=== PATIENT | male | born 1995 ===

== ENCOUNTER 2019-07-05 10:58 | Observation (INO) | payer SELFPAY ==
[2019-07-05] MEDS ORDERED: ONDANSETRON 4 MG/2 ML INJ IV ONE (12:00)
[2019-07-05] MEDS ORDERED: SODIUM CHLORIDE 0.9% 1000 ML 1,000 ML IV ONE (12:00)
[2019-07-05] MEDS ORDERED: MORPHINE 2 MG/1 ML INJ IV ONE (12:00)
[2019-07-05 12:06] LABS: Hematocrit 41.2 % (35.5-45.6); Hemoglobin 14.5 gm/dl (11.8-15.2); Mean Corpuscular HGB Conc 35 % (32-34); Mean Corpuscular Volume 90 fl (84-94); Platelet Count 166 K/mm3 (140-440); Red Blood Count 4.57 M/mm3 (3.65-5.03); Red Cell Distribution Width 13.3 % (13.2-15.2)
[2019-07-05 12:23] LABS: BUN/Creatinine Ratio 14; Blood Urea Nitrogen 10 mg/dL (9-20); Calcium 8.9 mg/dL (8.4-10.2); Hemolysis Index 11
[2019-07-05 12:28] LABS: Albumin 4.2 g/dL (3.9-5); Bilirubin,Direct 0.2 mg/dL (0-0.2)
--- NOTE | 2019-07-05 12:38 | Emergency Department Report ---
ED Abdominal Pain HPI - General Chief Complaint: Abdominal Pain Stated Complaint: RIGHT SIDE PAIN Time Seen by Provider: 07/05/19 11:37 Source: patient Mode of arrival: Ambulatory Limitations: No Limitations - History of Present Illness Initial Comments: 24-year-old male with no past medical history presents to ED with right lower quadrant pain since yesterday. Patient denies any fever, nausea, vomiting. He denies any associated back pain or hematuria. Patient states pain is located in the right lower quadrant and radiates down into the right testicle. He denies any testicular or scrotal swelling. Patient denies any urinary frequency. Reports slight dysuria. Denies any changes in appetite. MD Complaint: abdominal pain -: days(s) (1) Location: RLQ Radiation: other (R testicle) Migration to: no migration Severity: moderate Quality: sharp Consistency: constant Improves With: nothing Worsens With: nothing Associated Symptoms: dysuria. denies: nausea, vomiting, diarrhea, fever, hematuria - Related Data Allergies Allergy/AdvReac Type Severity Reaction Status Date / Time No Known Allergies Allergy Unverified 07/05/19 11:00 ED Review of Systems ROS: Stated complaint: RIGHT SIDE PAIN Other details as noted in HPI Comment: All other systems reviewed and negative Constitutional: denies: chills, fever Gastrointestinal: abdominal pain. denies: nausea, vomiting, diarrhea Genitourinary: dysuria, testicular pain. denies: frequency, hematuria Musculoskeletal: denies: back pain ED Past Medical Hx - Past Medical History Previous Medical History?: No - Surgical History Past Surgical History?: No - Social History Smoking Status: Never Smoker Substance Use Type: None ED Physical Exam - General Limitations: No Limitations General appearance: alert, in no apparent distress - Head Head exam: Present: atraumatic - Eye Eye exam: Present: normal appearance, EOMI - ENT ENT exam: Present: mucous membranes moist - Neck Neck exam: Present: normal inspection - Respiratory Respiratory exam: Present: normal lung sounds bilaterally. Absent: respiratory distress - Cardiovascular Cardiovascular Exam: Present: normal rhythm, tachycardia - GI/Abdominal GI/Abdominal exam: Present: soft, tenderness (RLQ tenderness present). Absent: distended - Extremities Exam Extremities exam: Present: normal inspection - Back Exam Back exam: Absent: CVA tenderness (R), CVA tenderness (L) - Neurological Exam Neurological exam: Present: alert, oriented X3 - Psychiatric Psychiatric exam: Present: normal affect, normal mood - Skin Skin exam: Present: warm, dry, intact, normal color ED Course Vital Signs 07/05/19 07/05/19 11:02 11:55 Temperature 97.7 F 99.6 F Pulse Rate 115 H 100 H Respiratory 18 17 Rate Blood Pressure 116/60 Blood Pressure 112/63 [Left] O2 Sat by Pulse 98 99 Oximetry - Consultations Consultation #1: 07/05/19 13:33 Spoke w/ Dr Ferguson. Informed of CT findings. States give zosyn. Will try to add on case for today. Admit to hospitalist. ED Medical Decision Making - Lab Data Result diagrams: 07/05/19 11:41 07/05/19 11:41 - Radiology Data Radiology results: report reviewed, image reviewed - Medical Decision Making 24 yo M w/ RLQ abdominal pain since yesterday. Pt referred to the ED due to concern for appendicitis after initially going to a clinic. Pt denies any fever, nausea, or vomiting. No hematuria observed by the patient. On exam, pt has RLQ tenderness, no peritoneal signs present. Pt w/ low grade temp, slightly tachycardic. WBCs normal. CT A/P shows acute appendicitis, no abscess or perforation. Spoke w/ Dr Ferguson, will take pt to OR. Zosyn given. Pt will be admitted to the hospitalist for further management. - Differential Diagnosis appendicitis, kidney stone, UTI Critical care attestation.: If time is entered above; I have spent that time in minutes in the direct care of this critically ill patient, excluding procedure time. ED Disposition Clinical Impression: Acute appendicitis Disposition: OP ADMIT IP TO THIS HOSP Is pt being admited?: Yes Condition: Stable Referrals: PRIMARY CARE, [Primary Care Provider] - 3-5 Days Time of Disposition: 13:34
[2019-07-05 13:05] LABS: Band Neutrophils # (Manual) 0.3 K/mm3; Basophils % (Manual) 0 % (0.0-1.8); Eosinophils % (Manual) 0 % (0.0-4.3); Total Cells Counted 100
[2019-07-05 13:06] LABS: Platelet Estimate Consistent w Auto; RBC Morphology Normal
[2019-07-05 13:08] LABS: Bacteria,Urine 1+ /HPF (Negative); Bilirubin,Urine NEG (Negative); Blood,Urine SM (Negative); Color,Urine Amber (Yellow); Mucus,Urine FEW /HPF
--- NOTE | 2019-07-05 13:15 | Cat Scan Report ---
CT abdomen pelvis w con INDICATION / CLINICAL INFORMATION: MAIN: RLQ pain x1day [id number] 100ml. TECHNIQUE: All CT scans at this location are performed using CT dose reduction for ALARA by means of automated e xposure control. COMPARISON: None available. FINDINGS: Lung bases are clear. ABDOMEN: The gallbladder, liver, spleen, pancreas and kidneys are normal. Calcification of the right adrenal gland suggests remote adrenal hemorrhage. No retroperitoneal adenopathy. Pelvis: The appendix is thick-walled, dilated and has some mild periappendiceal edema consistent with acute a ppendicitis. No acute colon abnormality. There is a small dependent fluid collections seen in the pelvis but no evidence of abscess. No bony abnormality. IMPRESSION: 1. Acute appendicitis. Signer Name: Larry Mishra MD Signed: 07/05/2019 1:11 PM Workstation Name: [id number]
[2019-07-05] MEDS ORDERED: PIPERACIL/TAZOBACTA 4.5/NS 100 4.5 GM/100 ML VIAL IV ONE (13:33)
--- NOTE | 2019-07-05 15:03 | Consultation ---
History of Present Illness Consult date: 07/05/19 Reason for consult: abdominal pain - History of present illness History of present illness: 24 year old male presented to ED with one day history of RLQ abdominal pain that radiated to his right groin and testicle. He denies having this pain before, as well as any n/v, or diarrhea. He had a CT scan that showed finding co nsistent with acute appendicitis. Past History Past Medical History: No medical history Past Surgical History: No surgical history Social history: denies: smoking Medications and Allergies Allergies Allergy/AdvReac Type Severity Reaction Status Date / Time No Known Allergies Allergy Unverified 07/05/19 11:00 Review of Systems - Constitutional poor appetite, no weight loss, no fever, no chills - Cardiovascular no chest pain - Respiratory no cough - Gastrointestinal abdominal pain, no nausea, no vomiting - Genitourinary testicular pain, no dysuria Exam Vital Signs Temp Pulse Resp BP Pulse Ox 97.7 F 115 H 18 116/60 98 07/05/19 11:02 07/05/19 11:02 07/05/19 11:02 07/05/19 11:02 07/05/19 11:02 - General physical appearance Positive: well developed, well nourished, no pain - Respiratory Positive: normal expansion, normal respiratory effort - Extremities Extremities: no ischemia - Abdomen Abdomen: Present: soft, other (tender to palpation in the RLQ, no rebound or guarding) Results - Labs 07/05/19 11:41 07/05/19 11:41 Abnormal lab results 07/05/19 07/05/19 07/05/19 Range/Units 11:41 11:41 11:41 MCHC 35 H (32-34) % Seg Neuts % (Manual) 92.0 H (40.0-70.0) % Lymphocytes % (Manual) 2.0 L (13.4-35.0) % Seg Neutrophils # Man 9.8 H (1.8-7.7) K/mm3 Lymphocytes # (Manual) 0.2 L (1.2-5.4) K/mm3 Sodium 132 L (137-145) mmol/L Chloride 95.6 L (98-107) mmol/L Creatinine 0.7 L (0.8-1.5) mg/dL Glucose 112 H (75-100) mg/dL AST 41 H (5-40) units/L Ur Specific [place] (1.003-1.030) 07/05/19 Range/Units 12:33 MCHC (32-34) % Seg Neuts % (Manual) (40.0-70.0) % Lymphocytes % (Manual) (13.4-35.0) % Seg Neutrophils # Man (1.8-7.7) K/mm3 Lymphocytes # (Manual) (1.2-5.4) K/mm3 Sodium (137-145) mmol/L Chloride (98-107) mmol/L Creatinine (0.8-1.5) mg/dL Glucose (75-100) mg/dL AST (5-40) units/L Ur Specific [place] 1.033 H (1.003-1.030) Diabetes panel 07/05/19 07/05/19 Range/Units 11:41 11:41 Sodium 132 L (137-145) mmol/L Potassium 3.9 (3.6-5.0) mmol/L Chloride 95.6 L (98-107) mmol/L Carbon Dioxide 24 (22-30) mmol/L BUN 10 (9-20) mg/dL Creatinine 0.7 L (0.8-1.5) mg/dL Glucose 112 H (75-100) mg/dL Calcium 8.9 (8.4-10.2) mg/dL AST 41 H (5-40) units/L ALT 30 (7-56) units/L Alkaline Phosphatase 94 (35-129) units/L Total Protein 7.7 (6.3-8.2) g/dL Albumin 4.2 (3.9-5) g/dL Calcium panel 07/05/19 07/05/19 Range/Units 11:41 11:41 Calcium 8.9 (8.4-10.2) mg/dL Albumin 4.2 (3.9-5) g/dL Pituitary panel 07/05/19 Range/Units 11:41 Sodium 132 L (137-145) mmol/L Potassium 3.9 (3.6-5.0) mmol/L Chloride 95.6 L (98-107) mmol/L Carbon Dioxide 24 (22-30) mmol/L BUN 10 (9-20) mg/dL Creatinine 0.7 L (0.8-1.5) mg/dL Glucose 112 H (75-100) mg/dL Calcium 8.9 (8.4-10.2) mg/dL Adrenal panel 07/05/19 07/05/19 Range/Units 11:41 11:41 Sodium 132 L (137-145) mmol/L Potassium 3.9 (3.6-5.0) mmol/L Chloride 95.6 L (98-107) mmol/L Carbon Dioxide 24 (22-30) mmol/L BUN 10 (9-20) mg/dL Creatinine 0.7 L (0.8-1.5) mg/dL Glucose 112 H (75-100) mg/dL Calcium 8.9 (8.4-10.2) mg/dL Total Bilirubin 0.90 (0.1-1.2) mg/dL AST 41 H (5-40) units/L ALT 30 (7-56) units/L Alkaline Phosphatase 94 (35-129) units/L Total Protein 7.7 (6.3-8.2) g/dL Albumin 4.2 (3.9-5) g/dL - Imaging CT scan - abdomen: pending, image reviewed CT scan - pelvis: pending, image reviewed Assessment and Plan 24 year old male with acute appendicitis. Afebrile and stable. Pt was consented via television receiver analyzer for laparoscopic appendectomy. He expressed understanding of the risks and benefits. Antibiotics and prepare for surgery. If surgery and recovery without complicat ions can probably be discharged tomorrow. Evaluation and treatment of this patient was during the time of the national and state emergency arising from the COVID-19 pandemic. The hospital is functioning under the conditions of the COVID-19 health crisis. Treatments and procedures performed meet the current and available best practice and guidance for patients during the COVID-19 pandemic.
[2019-07-05] MEDS ORDERED: HYDROmorphone 1 MG/1 ML INJ IV PRN ×2 (15:07→22:31)
[2019-07-05] MEDS ORDERED: ONDANSETRON 4 MG/2 ML INJ IV PRN ×3 (15:07→22:31)
--- NOTE | 2019-07-05 15:07 | Anesthesia Day of Surgery ---
Anesthesia Day of Surgery - Day of Surgery Patient Examined: Yes Patient H&P Reviewed: Yes Patient is NPO: Yes
--- NOTE | 2019-07-05 15:10 | Anesthesia Consultation ---
Anesthesia Consult and Med Hx Date of service: 07/05/19 - Airway Anesthetic Teeth Evaluation: Good ROM Head & Neck: Adequate Mental/Hyoid Distance: Adequate Mallampati Class: Class III Intubation Access Assessment: Probably Good - Pre-Operative Health Status ASA Pre-Surgery Classification: ASA1, Emergency Proposed Anesthetic Plan: General - Pulmonary Hx Smoking: No - Additional Comments Anesthesia Medical History Comments: Martiniquais speaking only-ER nurse translated. All questions answered.
[2019-07-05] MEDS ORDERED: BUPIVACAINE-EPINEPHRINE/PF 0.5%-1:200,000 (30 ML) VIAL INFILTRATI ONE (15:15)
[2019-07-05] MEDS ORDERED: LIDOCAINE (1%) 10 MG/1 ML VIAL 20 ML MDV ONE (15:15)
[2019-07-05] MEDS ORDERED: PHENYLEPHRINE/NS 1,000 MCG/10 ML SYRINGE (OR USE) IV ONE (15:43)
[2019-07-05] MEDS ORDERED: propofoL 200 MG/20 ML VIAL IV ONE (15:43)
[2019-07-05] MEDS ORDERED: SUCCINYLCHOLINE CHLORIDE 200 MG/10 ML INJ MDV ONE (15:43)
[2019-07-05] MEDS ORDERED: LIDOCAINE MPF (2%) 20 MG/1 ML VIAL 5 ML ONE (15:43)
[2019-07-05] MEDS ORDERED: ONDANSETRON 4 MG/2 ML INJ ONE (15:43)
[2019-07-05] MEDS ORDERED: ROCURONIUM 50 MG/5 ML INJ IV ONE (15:43)
[2019-07-05] MEDS ORDERED: GLYCOPYRROLATE 0.4 MG/2 ML INJ ONE (15:43)
[2019-07-05] MEDS ORDERED: NEOSTIGMINE 10MG/10 ML INJ MDV ONE (15:43)
[2019-07-05] MEDS ORDERED: fentaNYL 100 MCG/2 ML INJ ONE ×2 (15:43)
[2019-07-05] MEDS ORDERED: BUPIVACAINE/PF (0.5%) 5 MG/1 ML 30 ML VIAL INFILTRATI ONE (16:34)
[2019-07-05] MEDS ORDERED: LIDOCAINE (1%) 10 MG/1 ML VIAL 20 ML MDV INFILTRATI ONE (16:39)
--- NOTE | 2019-07-05 17:25 | Operative Report ---
Operative Report Operative Report: Date: July 05, 2019 Surgeon: Kala Ferguson MD Procedure: Laparoscopic appendectomy Preoperative diagnosis: Acute nonperforated appendicitis Postop diagnosis: Same as preop Anesthesia: General with endotracheal tube intubation Specimen: Appendix Complications: None immediate Indication: 24-year-old male presented to emergency room with 1 day history of right lower quadrant abdominal pain. CT scan showed acute appendicitis. Patient was consented with an restaurant service manager because he speaks only Ukrainian, for laparoscopic appendectomy. He expressed understanding of the risk and benefits. Details of procedure: Patient was brought into the OR suite, laid in supine position. Bilateral lower extremity SCDs were placed. General anesthesia was induced via successful endotracheal tube intubation. A Almodovar catheter was inserted under sterile conditions. Patient's abdomen was prepped and draped in sterile fashion with his left arm tucked at his side. No immediate preop antibiotics were given prior to incision because he was given Zosyn in the emergency room and it was not time to re-dose at the time of the procedure. A timeout was performed and a Veress needle was used to insufflate the abdomen to a pressure of 15 mmHg via an umbilical stab wound. Of note, a special smoke evacuator insufflator was used due to the fact that current guidelines suggest for laparoscopic cases a dedicated smoke evacuator is indicated due to the current state of emergency and COVID-19 pandemic. After this using Optiview technique a 5 mm trocar was placed just superior to the umbilicus. There was no gross injury to any intra-abdominal structures appreciated. 2 working trochars were placed under direct visualization. A 5 mm trocar in the suprapubic area, and a 12 mm trocar left abdomen. The patient was placed in Trendelenburg position and tilted towards his left side. The appendix was easily visualized with the distal two thirds showing obvious inflammation and dilation. The proximal third of the appendix appeared to be within fairly normal limits. It was retracted towards the intra-abdominal wall, and a LigaSure device was used to transect the mesoappendix. Using a white load on an laparoscopic stapler, the appendix was transected at the base along the cecum. It was then placed in Endo Catch bag. The staple line was inspected there were no signs of bleeding, low antonio or spillage. No abscess, or free fluid was appreciated. At this time the abdomen was then desufflated using the dedicated smoke evacuator tubing. Once the pressure was 0, and excess air was manually expressed, the trochars were removed. The appendix was retrieved via the 12 mm trocar site. Using open technique, the fascia at this site was closed with a 2-0 Vicryl. All skin incisions were closed with 4 Monocryl followed by Dermabond. Patient was awoken, extubated, Almodovar was removed prior to being transferred to the recovery room in stable condition. All counts were correct. Findings: Acute nonpurulent, nonperforated appendicitis
--- NOTE | 2019-07-05 17:25 | Post Anesthesia Evaluation ---
- Post Anesthesia Evaluation Patient Participated: Yes Airway Patent: Yes Stable Respiratory Function: Yes Nausea/Vomiting: No Temp > 96.8F: Yes Pain Manageable: Yes Adequeate Hydration: Yes Anesthesia Complications: No Block Receding Appropriately: Not Applicable Patient on Ventilator: No
[2019-07-05] MEDS ORDERED: LACTATED RINGERS 1,000 ML IV SCH (18:00)
[2019-07-05] MEDS ORDERED: oxyCODONE /ACETAMINOPHEN 5-325MG TAB PO PRN (18:59)
[2019-07-05] MEDS: PIPERACILLIN/TAZOBACTAM 3.375 3.375 GM/50 ML BAG IV SCH ×2 (22:27→22:32)
--- NOTE | 2019-07-05 22:30 | History and Physical Report ---
History of Present Illness Date of examination: 07/05/19 Date of admission: 07/05/19 13:44 Chief complaint: RLQ pain 1 day History of present illness: 24-year-old male with no past medical history presents to ED with right lower quadrant pain since yesterday. Patient denies any fever, nausea, vomiting. He denies any associated back pain or hematuria. Patient states pain is located in the right lower quadrant and radiates down into the right testicle. He denies any testicular or scrotal swelling. Patient denies any urinary frequency. Reports slight dysuria. Denies any changes in appetite. Past Medical History Previous Medical History?: No Surgical History Past Surgical History?: No Social History Smoking Status: Never Smoker Substance Use Type: None Family Hx Htn Review of Systems ROS: Stated complaint: RIGHT SIDE PAIN Other details as noted in HPI Comment: All other systems reviewed and negative Constitutional: denies: chills, fever Gastrointestinal: abdominal pain. denies: nausea, vomiting, diarrhea Genitourinary: dysuria, testicular pain. denies: frequency, hematuria Musculoskeletal: denies: back pain Past History Past Medical History: No medical history Past Surgical History: No surgical history Social history: denies: smoking Medications and Allergies Allergies Allergy/AdvReac Type Severity Reaction Status Date / Time No Known Allergies Allergy Unverified 07/05/19 11:00 Home Medications Medication Instructions Recorded Confirmed Last Taken Type oxyCODONE /ACETAMINOPHEN [Percocet 1 tab PO Q4HR PRN #20 tab 07/06/19 Unknown Rx 5/325] Active Meds: Active Medications Lactated Ringer's (Lactated Ringers) 1,000 mls @ 125 mls/hr IV DIRECT JHON Piperacillin Sod/Tazobactam Sod (Zosyn/Ns 3.375gm/50ml) 3.375 gm in 50 mls @ 100 mls/hr IV Q8HR JHON; Protocol Stop: 07/06/19 06:29 Last Admin: 07/05/19 22:27 Dose: 100 mls/hr Documented by: Ketorolac Tromethamine (Toradol) 30 mg IV Q6HR JHON Stop: 07/10/19 22:59 Ondansetron HCl (Zofran) 4 mg IV Q4H PRN PRN Reason: Nausea And Vomiting Oxycodone/Acetaminophen (Percocet 5/325) 2 tab PO Q4H PRN PRN Reason: Pain, Moderate (4-6) Exam - Constitutional Vitals: Temp Pulse Resp BP Pulse Ox 99.5 F 70 16 115/62 100 07/05/19 20:27 07/05/19 20:27 07/05/19 20:27 07/05/19 20:27 07/05/19 20:27 General appearance: Present: no acute distress, well-nourished - EENT Eyes: Present: PERRL ENT: hearing intact, clear oral mucosa - Neck Neck: Present: supple, normal ROM - Respiratory Respiratory effort: normal Respiratory: bilateral: CTA - Cardiovascular Heart rate: 78 Rhythm: regular Heart Sounds: Present: S1 & S2. Absent: rub, click - Extremities Extremities: pulses symmetrical, No edema Peripheral Pulses: within normal limits - Abdominal General gastrointestinal: Present: soft, non-tender, non-distended, normal bowel sounds Localized gastrointestinal: tender: RLQ, guarding: RLQ Male genitourinary: Present: normal - Integumentary Integumentary: Present: clear, warm, dry - Musculoskeletal Musculoskeletal: gait normal, strength equal bilaterally - Psychiatric Psychiatric: appropriate mood/affect, intact judgment & insight - Neurologic Neurologic: CNII-XII intact, moves all extremities - Allied Health Allied health notes reviewed: nursing, case management Results - Labs CBC & Chem 7: 07/06/19 03:58 07/06/19 03:58 Labs: Laboratory Last Values WBC 10.7 K/mm3 (4.5-11.0) 07/05/19 11:41 RBC 4.57 M/mm3 (3.65-5.03) 07/05/19 11:41 Hgb 14.5 gm/dl (11.8-15.2) 07/05/19 11:41 Hct 41.2 % (35.5-45.6) 07/05/19 11:41 MCV 90 fl (84-94) 07/05/19 11:41 MCH 32 pg (28-32) 07/05/19 11:41 MCHC 35 % (32-34) H 07/05/19 11:41 RDW 13.3 % (13.2-15.2) 07/05/19 11:41 Plt Count 166 K/mm3 (140-440) 07/05/19 11:41 Add Manual Diff Complete 07/05/19 11:41 Total Counted 100 07/05/19 11:41 Seg Neutrophils % Drain Technician 07/05/19 11:41 Seg Neuts % (Manual) 92.0 % (40.0-70.0) H 07/05/19 11:41 Band Neutrophils % 3.0 % 07/05/19 11:41 Lymphocytes % (Manual) 2.0 % (13.4-35.0) L 07/05/19 11:41 Reactive Lymphs % (Man) 0 % 07/05/19 11:41 Monocytes % (Manual) 3.0 % (0.0-7.3) 07/05/19 11:41 Eosinophils % (Manual) 0 % (0.0-4.3) 07/05/19 11:41 Basophils % (Manual) 0 % (0.0-1.8) 07/05/19 11:41 Metamyelocytes % 0 % 07/05/19 11:41 Myelocytes % 0 % 07/05/19 11:41 Promyelocytes % 0 % 07/05/19 11:41 Blast Cells % 0 % 07/05/19 11:41 Nucleated RBC % Not Reportable 07/05/19 11:41 Seg Neutrophils # Man 9.8 K/mm3 (1.8-7.7) H 07/05/19 11:41 Band Neutrophils # 0.3 K/mm3 07/05/19 11:41 Lymphocytes # (Manual) 0.2 K/mm3 (1.2-5.4) L 07/05/19 11:41 Abs React Lymphs (Man) 0.0 K/mm3 07/05/19 11:41 Monocytes # (Manual) 0.3 K/mm3 (0.0-0.8) 07/05/19 11:41 Eosinophils # (Manual) 0.0 K/mm3 (0.0-0.4) 07/05/19 11:41 Basophils # (Manual) 0.0 K/mm3 (0.0-0.1) 07/05/19 11:41 Metamyelocytes # 0.0 K/mm3 07/05/19 11:41 Myelocytes # 0.0 K/mm3 07/05/19 11:41 Promyelocytes # 0.0 K/mm3 07/05/19 11:41 Blast Cells # 0.0 K/mm3 07/05/19 11:41 WBC Morphology Not Reportable 07/05/19 11:41 Hypersegmented Neuts Not Reportable 07/05/19 11:41 Hyposegmented Neuts Not Reportable 07/05/19 11:41 Hypogranular Neuts Not Reportable 07/05/19 11:41 Smudge Cells Not Reportable 07/05/19 11:41 Toxic Granulation Not Reportable 07/05/19 11:41 Toxic Vacuolation Not Reportable 07/05/19 11:41 Dohle Bodies Not Reportable 07/05/19 11:41 Pelger-Huet Anomaly Not Reportable 07/05/19 11:41 Denys Rods Not Reportable 07/05/19 11:41 Platelet Estimate Consistent w auto 07/05/19 11:41 Clumped Platelets Not Reportable 07/05/19 11:41 Plt Clumps, EDTA Not Reportable 07/05/19 11:41 Large Platelets Not Reportable 07/05/19 11:41 Giant Platelets Not Reportable 07/05/19 11:41 Platelet Satelliting Not Reportable 07/05/19 11:41 Plt Morphology Comment Not Reportable 07/05/19 11:41 RBC Morphology Normal 07/05/19 11:41 Dimorphic RBCs Not Reportable 07/05/19 11:41 Polychromasia Not Reportable 07/05/19 11:41 Hypochromasia Not Reportable 07/05/19 11:41 Poikilocytosis Not Reportable 07/05/19 11:41 Anisocytosis Not Reportable 07/05/19 11:41 Microcytosis Not Reportable 07/05/19 11:41 Macrocytosis Not Reportable 07/05/19 11:41 Spherocytes Not Reportable 07/05/19 11:41 Pappenheimer Bodies Not Reportable 07/05/19 11:41 Sickle Cells Not Reportable 07/05/19 11:41 Target Cells Not Reportable 07/05/19 11:41 Tear Drop Cells Not Reportable 07/05/19 11:41 Ovalocytes Not Reportable 07/05/19 11:41 Helmet Cells Not Reportable 07/05/19 11:41 [place] Bodies Not Reportable 07/05/19 11:41 [place] Rings Not Reportable 07/05/19 11:41 Reynold Cells Not Reportable 07/05/19 11:41 Bite Cells Not Reportable 07/05/19 11:41 Crenated Cell Not Reportable 07/05/19 11:41 Elliptocytes Not Reportable 07/05/19 11:41 Acanthocytes (Spur) Not Reportable 07/05/19 11:41 Rouleaux Not Reportable 07/05/19 11:41 Hemoglobin C Crystals Not Reportable 07/05/19 11:41 Schistocytes Not Reportable 07/05/19 11:41 Malaria parasites Not Reportable 07/05/19 11:41 Manuel Bodies Not Reportable 07/05/19 11:41 Hem Pathologist Commnt No 07/05/19 11:41 Sodium 132 mmol/L (137-145) L 07/05/19 11:41 Potassium 3.9 mmol/L (3.6-5.0) 07/05/19 11:41 Chloride 95.6 mmol/L (98-107) L 07/05/19 11:41 Carbon Dioxide 24 mmol/L (22-30) 07/05/19 11:41 Anion Gap 16 mmol/L 07/05/19 11:41 BUN 10 mg/dL (9-20) 07/05/19 11:41 Creatinine 0.7 mg/dL (0.8-1.5) L 07/05/19 11:41 Estimated GFR > 60 ml/min 07/05/19 11:41 BUN/Creatinine Ratio 14 % 07/05/19 11:41 Glucose 112 mg/dL (75-100) H 07/05/19 11:41 POC Glucose 115 (70-105) H 07/05/19 21:44 Calcium 8.9 mg/dL (8.4-10.2) 07/05/19 11:41 Total Bilirubin 0.90 mg/dL (0.1-1.2) 07/05/19 11:41 Direct Bilirubin 0.2 mg/dL (0-0.2) 07/05/19 11:41 Indirect Bilirubin 0.7 mg/dL 07/05/19 11:41 AST 41 units/L (5-40) H 07/05/19 11:41 ALT 30 units/L (7-56) 07/05/19 11:41 Alkaline Phosphatase 94 units/L (35-129) 07/05/19 11:41 Total Protein 7.7 g/dL (6.3-8.2) 07/05/19 11:41 Albumin 4.2 g/dL (3.9-5) 07/05/19 11:41 Albumin/Globulin Ratio 1.2 % 07/05/19 11:41 Lipase 15 units/L (13-60) 07/05/19 11:41 Urine Color [place] (Yellow) 07/05/19 12:33 Urine Turbidity Clear (Clear) 07/05/19 12:33 Urine pH 7.0 (5.0-7.0) 07/05/19 12:33 Ur Specific [place] 1.033 (1.003-1.030) H 07/05/19 12:33 Urine Protein 30 mg/dl mg/dL (Negative) 07/05/19 12:33 Urine Glucose (UA) Neg mg/dL (Negative) 07/05/19 12:33 Urine Ketones 20 mg/dL (Negative) 07/05/19 12:33 Urine Blood Sm (Negative) 07/05/19 12:33 Urine Nitrite Neg (Negative) 07/05/19 12:33 Urine Bilirubin Neg (Negative) 07/05/19 12:33 Urine Urobilinogen 4.0 mg/dL (<2.0) 07/05/19 12:33 Ur Leukocyte Esterase Neg (Negative) 07/05/19 12:33 Urine WBC (Auto) 1.0 /HPF (0.0-6.0) 07/05/19 12:33 Urine RBC (Auto) 34.0 /HPF (0.0-6.0) 07/05/19 12:33 U Epithel Cells (Auto) < 1.0 /HPF (0-13.0) 07/05/19 12:33 Urine Bacteria (Auto) 1+ /HPF (Negative) 07/05/19 12:33 Urine Mucus Few /HPF 07/05/19 12:33 - Imaging and Cardiology CT scan - abdomen: report reviewed Imaging and Cardiology: CT Abdomen Pelvis: The appendix is thick-walled, dilated and has some mild periappendiceal edema consistent with acute appendicitis. No acute colon abnormality. There is a small dependent fluid collections seen in the pelvis but no evidence of abscess. No bony abnormality. IMPRESSION: 1. Acute appendicitis. Almodovar/IV: IV Catheter Type [Right Peripheral IV Antecubital] Assessment and Plan Advance Directives: Yes (FC) VTE prophylaxis?: Chemical - Patient Problems (1) Acute appendicitis Current Visit: Yes Status: Acute Qualifiers: Acute appendicitis type: unspecified acute appendicitis type Qualified Code(s): K35.80 - Unspecified acute appendicitis Plan to address problem: Patient going to operating room Dr Ferguson consulted (2) DVT prophylaxis Current Visit: Yes Status: Acute Plan to address problem: On Scd''s and GI prophylaxis
[2019-07-05] MEDS ORDERED: ACETAMINOPHEN 325 MG TAB PO PRN (22:31)
[2019-07-05] MEDS ORDERED: FAMOTIDINE 20 MG/2 ML INJ IV SCH (23:00)
[2019-07-05] MEDS: KETOROLAC 30 MG/1 ML INJ IV SCH (23:14)
[2019-07-06] MEDS: KETOROLAC 30 MG/1 ML INJ IV SCH ×3 (00:38→12:48)
[2019-07-06 05:18] LABS: Hematocrit 38.5 % (35.5-45.6); Hemoglobin 13.4 gm/dl (11.8-15.2); Mean Corpuscular HGB Conc 35 % (32-34); Mean Corpuscular Volume 91 fl (84-94); Platelet Count 130 K/mm3 (140-440); Red Blood Count 4.22 M/mm3 (3.65-5.03); Red Cell Distribution Width 13.3 % (13.2-15.2)
[2019-07-06 05:32] LABS: BUN/Creatinine Ratio 10; Blood Urea Nitrogen 6 mg/dL (9-20); Calcium 7.9 mg/dL (8.4-10.2); Hemolysis Index 6
[2019-07-06] MEDS: PIPERACILLIN/TAZOBACTAM 3.375 3.375 GM/50 ML BAG IV SCH (05:56)
[2019-07-06 06:22] LABS: Basophils % (Manual) 0 % (0.0-1.8); Eosinophils % (Manual) 0 % (0.0-4.3); Total Cells Counted 100
[2019-07-06 06:23] LABS: Platelet Estimate Consistent w Auto; Spherocytes Rare
[2019-07-06] MEDS ORDERED: FAMOTIDINE 20 MG TAB PO SCH (10:00)
--- NOTE | 2019-07-06 12:50 | Progress Note ---
Assessment and Plan POD#1 s/p lap appy for acute appendicitis. afebrile, stable. Ok to discharge home and follow up in the office in two weeks for check up. I answered all questions through an funeral arrangement director and instructed him to advance his diet as tolerated and he can shower. percocet prescription left in chart. Subjective Date of service: 07/06/19 Patient Reports: Positive: feels better, tolerating a regular diet ( pt says he feels well, but his left side where the appendix was removed is sore. He also says he has discomfort when he urinates since her was catheturized.) Objective Vital Signs - 12hr 07/06/19 07/06/19 07/06/19 02:42 03:23 04:23 Temperature 99.0 F Pulse Rate 82 Respiratory 16 18 18 Rate Blood Pressure Blood Pressure 115/65 [Left] O2 Sat by Pulse 100 Oximetry 07/06/19 07/06/19 07/06/19 05:56 06:26 07:07 Temperature 98.5 F Pulse Rate 65 Respiratory 18 18 20 Rate Blood Pressure 110/56 Blood Pressure [Left] O2 Sat by Pulse 99 Oximetry 07/06/19 10:00 Temperature Pulse Rate 65 Respiratory Rate Blood Pressure Blood Pressure [Left] O2 Sat by Pulse Oximetry - General physical appearance well developed, no distress, no pain - Respiratory normal expansion, normal respiratory effort - Abdomen soft, other (incisions c/d/i, appropriately tender to palpation) - Labs 07/06/19 03:58 07/06/19 03:58 Diabetes panel 07/06/19 Range/Units 03:58 Sodium 134 L (137-145) mmol/L Potassium 3.6 (3.6-5.0) mmol/L Chloride 101.2 (98-107) mmol/L Carbon Dioxide 22 (22-30) mmol/L BUN 6 L (9-20) mg/dL Creatinine 0.6 L (0.8-1.5) mg/dL Glucose 148 H (75-100) mg/dL Calcium 7.9 L (8.4-10.2) mg/dL Calcium panel 07/06/19 Range/Units 03:58 Calcium 7.9 L (8.4-10.2) mg/dL Pituitary panel 07/06/19 Range/Units 03:58 Sodium 134 L (137-145) mmol/L Potassium 3.6 (3.6-5.0) mmol/L Chloride 101.2 (98-107) mmol/L Carbon Dioxide 22 (22-30) mmol/L BUN 6 L (9-20) mg/dL Creatinine 0.6 L (0.8-1.5) mg/dL Glucose 148 H (75-100) mg/dL Calcium 7.9 L (8.4-10.2) mg/dL Adrenal panel 07/06/19 Range/Units 03:58 Sodium 134 L (137-145) mmol/L Potassium 3.6 (3.6-5.0) mmol/L Chloride 101.2 (98-107) mmol/L Carbon Dioxide 22 (22-30) mmol/L BUN 6 L (9-20) mg/dL Creatinine 0.6 L (0.8-1.5) mg/dL Glucose 148 H (75-100) mg/dL Calcium 7.9 L (8.4-10.2) mg/dL
--- NOTE | 2019-07-06 13:17 | Discharge Summary ---
Providers - Providers Date of Admission: 07/05/19 13:44 Date of discharge: 07/06/19 Attending physician: ANGELES RAMON 07/05/19 13:33 Consult to Physician [CONS] Stat Comment: Consulting Provider: KALA FERGUSON Physician Instructions: Reason For Exam: appendicitis Primary care physician: J2[employer] ENGINEER Hospitalization Condition: Stable Pertinent studies: CT abd and labs--Ac Appendicitisute Procedures: Appendectomy Hospital course: Surgeon: Kala Ferguson MD Procedure: Laparoscopic appendectomy Preoperative diagnosis: Acute nonperforated appendicitis Postop diagnosis: Same as preop Anesthesia: General with endotracheal tube intubation Specimen: Appendix Complications: None immediate Findings: Acute nonpurulent, nonperforated appendicitis Disposition: TO HOME OR SELFCARE - Discharge Diagnoses (1) Acute appendicitis Status: Acute Qualifiers: Acute appendicitis type: unspecified acute appendicitis type Qualified Code(s): K35.80 - Unspecified acute appendicitis Core Measure Documentation - Palliative Care Palliative Care/ Comfort Measures: Not Applicable - Core Measures Any of the following diagnoses?: none Exam - Constitutional Vitals: Temp Pulse Resp BP Pulse Ox 98.5 F 65 20 110/56 99 07/06/19 07:07 07/06/19 10:00 07/06/19 07:07 07/06/19 07:07 07/06/19 07:07 General appearance: Present: no acute distress, well-nourished - EENT Eyes: Present: PERRL ENT: hearing intact, clear oral mucosa - Neck Neck: Present: supple, normal ROM - Respiratory Respiratory effort: normal Respiratory: bilateral: CTA - Cardiovascular Heart rate: 78 Heart Sounds: Present: S1 & S2. Absent: rub, click - Extremities Extremities: no ischemia, pulses intact, pulses symmetrical, No edema Peripheral Pulses: within normal limits - Abdominal General gastrointestinal: Present: soft, non-tender, non-distended, normal bowel sounds Male genitourinary: Present: normal - Integumentary Integumentary: Present: clear, warm, dry - Musculoskeletal Musculoskeletal: gait normal, strength equal bilaterally - Psychiatric Psychiatric: appropriate mood/affect, intact judgment & insight - Neurologic Neurologic: CNII-XII intact, moves all extremities - Allied Health Allied health notes reviewed: nursing, case management Plan Activity: no restrictions Diet: clear liquids Follow up with: UGO SIDDIQUI MD [Primary Care Provider] - 3-5 Days KALA FERGUSON MD [Staff Physician] - 7 Days Prescriptions: oxyCODONE /ACETAMINOPHEN [Percocet 5/325] 1 tab PO Q4HR PRN #20 tab PRN Reason: Pain , Severe (7-10)
[2019-07-06 13:23] VITALS: BP 138/82
[2019-07-06] MEDS ORDERED: PIPERACILLIN/TAZOBACTAM 3.375 3.375 GM/50 ML BAG IV SCH (14:00)
== END 2019-07-06 14:15 | disposition home or self-care (01) ==
LOC: ED 10:58 → 2B-ACE 13:44
PROVIDERS: ADMIT Internal Medicine; ATTEND Internal Medicine
DX: K35.80 Unspecified acute appendicitis (principal)
CPT/HCPCS: 36415; 44970; 74177; 80048; 80076; 81001; 82962; 83690; 85007; 85025; 88304; 96365; 96366; 96375; 96376; 99285; G0378; J0330; J1885; J2270; J2370; J2405; J2543; J2704; J2710; J3010; J7030; J7120; Q9967